=== PATIENT | male | born 1990 | race Hispanic/Latino ===

== ENCOUNTER 2019-11-17 06:07 | Emergency (ER) | payer BC, SELFPAY ==
[2019-11-17] VITALS (10 sets, daily range): BP systolic 111–136; BP diastolic 60–108; PULSE 34–69; RESP 12–18; TEMP 36.4–36.7; O2SAT 98–100
--- NOTE | ~2019-11-17 | XR_ITS ---
EXAMINATION: XR hand RT min 3V DATE: 11/17/2019 06:50 INDICATION: Right hand second digit pain. Injury. TECHNIQUE: 3 views of right hand were obtained. COMPARISON: None. FINDINGS: Bone alignment is normal. No fracture. 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 IMPRESSION: 1. No fracture. Reviewed, dictated and finalized at location A. IMPRESSION: 1. No fracture.
--- NOTE | 2019-11-17 06:55 | ECG_ITS ---
Measurements Intervals [place] Rate: 61 P: 39 SD: 271 QRS: 75 QRSD: 106 T: 26 QT: 399 QTc: 404 Interpretive Statements SINUS RHYTHM WITH FIRST DEGREE AV BLOCK ST ELEVATION IN DIFFUSE LEADS- PROBABLY EARLY REPOLARIZATION BASELINE ARTIFACT- I, II, AVR ABNORMAL ECG Electronically Signed On 11-17-2019 7:24:16 CDT by Saul Garcia D.O.
--- NOTE | 2019-11-17 06:59 | PC.NURSE ---
Patient c/o feeling light headed and nausea, HR dropped to 34. Patient laid back and placed on campus monitor. Sinus rossy HR in the 30's. Physician aware and orders received.
[2019-11-17 07:02] LABS: Glucose Point of Care 83 (65-105)
--- NOTE | 2019-11-17 07:21 | ED.UPPEXIN ---
HPI - Extremity Injury (Upper) General Chief Complaint: Extremity Injury, Upper Stated Complaint: finger injury Time Seen by Provider: 11/17/19 06:23 History of Present Illness HPI narrative: Pt is a 29 y/o male who p/w right 2nd digit pain. Slammed it in a car door yesterday. Subungal hematoma present. No numbness/tingling. Pain distal phalanx. No other injury. Pain worse with movement. Related Data Home Medications Medication Instructions Recorded Confirmed No Home Medications 11/17/19 11/17/19 Allergies Allergy/AdvReac Type Severity Reaction Status Date / Time No Known Allergies Allergy Verified 11/17/19 07:18 Review of Systems Review of Systems: All systems reviewed & are unremarkable except as noted in HPI and below Musculoskeletal: Comments: right 2nd digit pain Integumentary/Breasts: Comments: subungal hematoma PMFSH Past Medical History Medical History (Updated 11/17/19 @ 08:20 by Negrito Weiss MD) No pertinent past medical history Surgical History Surgical History (Updated 11/17/19 @ 07:50 by Negrito Weiss MD) No pertinent past surgical history Social History Social History (Updated 11/17/19 @ 07:51 by Negrito Weiss MD) Smoking status: Never smoker Exam Const: General: healthy appearing, no acute distress, well developed and alert Orientation/consciousness: patient oriented x3 Limitations: no limitations HENMT: Head: normocephalic and atraumatic Mouth: Yes oropharynx normal and Yes moist mucous membranes Resp: Effort & Inspection: normal respiratory effort and able to speak in complete sentences Auscultation: clear to auscultation bilaterally Cardio: Rate: regular rate Rhythm: regular rhythm Peripheral pulses: radial pulses present Skin: General skin exam: normal color and no rashes or lesions noted Trauma: no lacerations or abrasions Wounds: no wounds Neuro: General: patient oriented x3 Speech: normal speech Extrem: Other: TTP distal phalanx right 2nd digit with subungal hematome, ROM intact at DIP. No other abnormality. Course Course Emergency Course: Pt has vasovagal near syncope while having finger manipulated during XR. Given 1L NS. Feeling better. D/c. Vital Signs Vital signs: Vital Signs Temperature 98.1 F 11/17/19 06:13 Pulse Rate 65 11/17/19 06:13 Respiratory Rate 18 11/17/19 06:13 Blood Pressure 134/108 H 11/17/19 06:13 Pulse Oximetry 98 11/17/19 06:13 Temperature 97.5 F L 11/17/19 07:23 Pulse Rate 68 11/17/19 07:26 Respiratory Rate 17 11/17/19 07:23 Blood Pressure 117/76 11/17/19 07:26 Pulse Oximetry 99 11/17/19 07:23 MDM - Extremity Injury (Upper) Lab Data Labs: Lab Results 11/17/19 Range/Units 06:53 POC Capillary Glucose 83 (65-105) mg/dl Imaging Data Radiologist's impression: ITS Impressions Hand X-Ray 11/17/19 06:52 IMPRESSION: 1. No fracture. ECG Data EKG #1: ECG completion date: 11/17/19 ECG completion time: 06:58 EKG Interpretation: normal rate (61), sinus rhythm, ST elevation (shapr J-point indicating early repolarization), normal QRS, normal QT and NL axis Discharge Plan Discharge Clinical Impression: Subungual hematoma, Contusion of finger Patient Disposition: Home, Self-Care Condition: Stable Instructions: Subungual Hematoma (ED) Additional Instructions: Return to the ER if you have new injury, you have fever over 101F, or you have other concerns. Take tylenol/ibuprofen for pain. Prescriptions: No Action No Home Medications RF: 0 Follow-up/Referrals: UNKNOWN,DOCTOR [Primary Care Provider] -
[2019-11-17] MEDS: SODIUM CHLORIDE 0.9% IV 1,000 ML 999 ML IV CONT (07:22)
== END 2019-11-17 08:45 | disposition home or self-care (01) ==
PROVIDERS: Emergency Provider Emergency Medicine
DX: S60.121A Contusion of right index finger with damage to nail, initial encounter (principal); R55 Syncope and collapse; I44.0 Atrioventricular block, first degree; R94.31 Abnormal electrocardiogram [ECG] [EKG]; W23.0XXA Caught, crushed, jammed, or pinched between moving objects, initial encounter
CPT/HCPCS: 29130; 73130; 93005; 96360; 99283; J7030